=== PATIENT | male | born 1990 | race Hispanic/Latino ===

== ENCOUNTER 2019-12-02 14:01 | Emergency (ER) | payer SELFPAY ==
[~2019-12-02] VITALS: Ht 185.4 cm; Wt 108.9 kg
[2019-12-02] MEDS ORDERED: KETOROLAC TROMETHAMINE 30 MG/ML VIAL IV STA (15:31)
[2019-12-02] MEDS ORDERED: SODIUM CHLORIDE 0.9% 1000ML 1,000 ML IV SCH (15:45)
[2019-12-02] MEDS ORDERED: KETOROLAC TROMETHAMINE 30 MG/ML VIAL ONE (16:10)
[2019-12-02] MEDS ORDERED: SODIUM CHLORIDE 0.9% 1000ML 1,000 ML ONE (16:10)
--- NOTE | 2019-12-02 16:25 | Diagnostic Imaging Report ---
EXAM: CT Abdomen and Pelvis WITHOUT intravenous contrast INDICATION: Left flank pain COMPARISON: None. TECHNIQUE: Abdomen and pelvis were scanned utilizing a multidetector helical scanner from the lung base to the pubic symphysis without administration of IV contrast. Coronal and sagittal reformations were obtained. IV CONTRAST: None ORAL CONTRAST: None COMPLICATIONS: None RADIATION DOSE: Total DLP: 795 mGy*cm Dose modulation, iterative reconstruction, and/or weight based adjustment of the mA/kV was utilized to reduce the radiation dose to as low as reasonably achievable. FINDINGS: LOWER THORAX: Normal. HEPATOBILIARY: Severe diffuse hepatic steatosis. No definite focal liver lesion. Unremarkable gallbladder. SPLEEN: Splenomegaly to 14.9 cm. PANCREAS: No focal masses or ductal dilatation. ADRENALS: No adrenal nodules. KIDNEYS/URETERS: 2 mm calculus at the left ureterovesical junction likely represents a stone in transit. No hydronephrosis, hydroureter, or solid mass lesions. PELVIC ORGANS/BLADDER: Unremarkable PERITONEUM / RETROPERITONEUM: No free air or fluid. LYMPH NODES: No lymphadenopathy. VESSELS: Unremarkable. GI TRACT: No abnormal bowel thickening. No bowel obstruction. Normal appendix. BONES AND SOFT TISSUES: No acute osseous injury. No suspicious lytic or blastic lesion. IMPRESSION: 2 mm calcific density at the left ureterovesical junction likely represents a stone in transit. No hydronephrosis or hydroureter. Severe diffuse hepatic steatosis. Splenomegaly. Signed by: Roxanna Ferrell MD on 12/02/2019 4:21 PM
--- NOTE | 2019-12-02 18:10 | Emergency Department Note ---
History of Present Illnes History of Present Illness Chief Complaint: flank pain History of Present Illness This is a 29 year old male, with previous history of opioid abuse who has been c lean for 2 years, presents with left flank pain started today at noon she was at work. Patient states that he had a similar pain about approximately one month ago that was in the left low back area, was sharp, stabbing, and last for approximately 30 minutes and then resolved. He did not seek medical attention for that episode. Patient was in his usual state of good health until today at noon, when the pain recurred. The pain is described as sharp, stabbing, and in the left low back area. The pain radiates around to the left lower abdomen and groin. He denies any testicular pain or swelling. He also developed a headache since arriving here in the ED. Patient saw taken anything for the pain. He is also not seen any blood in his urine. He denies any previous history of kidney stones. Due to his recovery from opioid addiction, he requests no narcotic pain medication. 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 Onset (how long ago): hour(s) (3) Location: left flank and lower abdomen Quality: sharp, stabbing, Radiation: Reports abdomen (left side of the abdomen, and left lower quadrant) Severity: moderate Onset quality: sudden Duration (how long): hour(s) (3) Timing of current episode: constant Progression: worsening Chronicity: recurrent Context: Denies recent illness, Denies recent surgery, Denies trauma/injury Relieving factors: none Exacerbating factors: none Associated symptoms: Reports denies other symptoms; Denies chest pain, Denies cough, Denies fever/chills, Denies headaches, Denies nausea/vomiting, Denies shortness of breath Treatments prior to arrival: none Past Medical/Family History Physician Review I have reviewed the patient's past medical and family history. Any updates have been documented here. Past Medical History Recent Fever: No Clinical Suspicion of Infectio: No New/Unexplained Change in Ment: No Past Medical History: None Other Medical History: Opioid addiction - clean x 2 years, on Nalaxone; Past Surgical History: None Social History Smoking Cessation: Current every day smoker (Vapes) Counseling Performed: Yes Alcohol Use: None Any Illegal Drug Use: No TB Exposure/Symptoms: No Physically hurt or threatened: No Family History Family history of heart diseas: No Other Any Pre-Existing Lines (PICC,: No Is patient up to date on immun: No Review of Systems Review of Systems Constitutional: Reports no symptoms; Denies chills, Denies fever, Denies malaise EENTM: Reports no symptoms; Denies blurred vision (MORNING the left alcohol or) Cardiovascular: Denies chest pain, Denies palpitations Gastrointestinal: Reports abdominal pain; Denies diarrhea Genitourinary: Reports no symptoms Musculoskeletal: Reports no symptoms; Denies muscle pain Integumentary: Reports no symptoms Neurological: Reports headache; Denies numbness, Denies tingling, Denies weakness Psychological: Reports no symptoms Review of other systems: All other systems negative Physical Exam Related Data Triage Vital Signs Vital Signs Date Time Temp Pulse Resp B/P (MAP) Pulse Ox O2 Delivery O2 Flow Rate FiO2 12/02/19 14:45 98.0 59 20 140/89 100 Vital signs reviewed: Yes Physical Exam CONSTITUTIONAL Constitutional: Present well-developed, Present well-nourished; Absent ill appearing (appears uncomfortable;) HENT HENT: Present normocephalic, Present atraumatic, Present oropharynx clear/moist, Present nose normal HENT L/R: Present left ext ear normal, Present right ext ear normal EYES Eyes: Reports PERRL, Reports conjunctivae normal NECK Neck: Present ROM normal; Absent cervical adenopathy PULMONARY Pulmonary: Present effort normal, Present breath sounds normal CARDIOVASCULAR Cardiovascular: Present regular rhythm, Present heart sounds normal, Present capillary refill normal, Present normal rate; Absent murmur GASTROINTESTINAL Abdominal: Present soft, Present nontender, Present bowel sounds normal; Absent tender, Absent guarding, Absent rebound, Absent left CVA tenderness, Absent right CVA tenderness GENITOURINARY Genitourinary: Present exam deferred SKIN Skin: Present warm; Absent rash MUSCULOSKELETAL Musculoskeletal: Present ROM normal; Absent tenderness, Absent swelling NEUROLOGICAL Neurological: Present alert, Present oriented x 3 PSYCHOLOGICAL Psychological: Present mood/affect normal Results Laboratory Laboratory CBC - nl except for WBC = 10.1; CMP nl except for: gluc = 126, ALT = 163, AST - 83; UA - vili- small, blo -lagrge, Prot - 100 mg/dl; Lab results reviewed: Yes Imaging Imaging results reviewed: Yes Impressions [facility] [address] [address] Patient Name: LAMIN SANTA MR #: [id number] : 1990 Age/Sex: 29/M Req #: [id number] Adm Physician: Ordered by: DARRION RAHMAN MD Report #: [id number] Location: [facility] Room/Bed: Procedure: HOPD/CT ABD/PEL WO CONTRAST-HOPD Exam Date: 12/02/19 Exam Time: 1611 REPORT STATUS: Signed EXAM: CT Abdomen and Pelvis WITHOUT intravenous contrast INDICATION: Left flank pain COMPARISON: None. TECHNIQUE: Abdomen and pelvis were scanned utilizing a multidetector helical scanner from the lung base to the pubic symphysis without administration of IV contrast. Coronal and sagittal reformations were obtained. IV CONTRAST: None ORAL CONTRAST: None COMPLICATIONS: None RADIATION DOSE: Total DLP: 795 mGy*cm Dose modulation, iterative reconstruction, and/or weight based adjustment of the mA/kV was utilized to reduce the radiation dose to as low as reasonably achievable. FINDINGS: LOWER THORAX: Normal. HEPATOBILIARY: Severe diffuse hepatic steatosis. No definite focal liver lesion. Unremarkable gallbladder. SPLEEN: Splenomegaly to 14.9 cm. PANCREAS: No focal masses or ductal dilatation. ADRENALS: No adrenal nodules. KIDNEYS/URETERS: 2 mm calculus at the left ureterovesical junction likely represents a stone in transit. No hydronephrosis, hydroureter, or solid mass lesions. PELVIC ORGANS/BLADDER: Unremarkable PERITONEUM / RETROPERITONEUM: No free air or fluid. LYMPH NODES: No lymphadenopathy. VESSELS: Unremarkable. GI TRACT: No abnormal bowel thickening. No bowel obstruction. Normal appendix. BONES AND SOFT TISSUES: No acute osseous injury. No suspicious lytic or blastic lesion. IMPRESSION: 2 mm calcific density at the left ureterovesical junction likely represents a stone in transit. No hydronephrosis or hydroureter. Severe diffuse hepatic steatosis. Splenomegaly. Signed by: Sofie Ferrell MD on 12/02/2019 4:21 PM Dictated By: SOFIE FERRELL MD 1621 Transcribed By: MADI on 12/02/19 162 COPY TO: DARRION RAHMAN MD~ Diagnostics Tests Diagnostic test(s) reviewed: Yes Assessment & Plan Medical Decision Making MDM - Patient's pain resolved with the Toradol. Reviewed results of CT scan and labs with patient. Explained that he has a 2 mm stone at the left UVJ junction, that is nonobstructing, and that should, hopefully, has without incident. - Take medications as directed for pain or nausea. - Straining her urine, with each urination, and collect stone to take with you for follow-up with urology. - Recommend that you drink at least 1 gallon of water per day for the next several days until the stone is passed. - Follow-up with your urologist, upon return home, due to year history of kidney stone. Follow-up with urologist here in [place], if your symptoms worsen. - Follow-up with your primary care physician upon return home to [place], egarding the elevated liver enzymes discovered on your lab work today in the ED. - Return to the emergency room if your symptoms worsen, your pain is uncontrolled, or you are vomiting and unable to keep fluids down. Assessment & Plan Final Impression: (1) Left nephrolithiasis (2) Abdominal pain (3) Elevated liver enzymes Depart Disposition: HOME, SELF-CARE Last Vital Signs Date Time Temp Pulse Resp B/P (MAP) Pulse Ox O2 Delivery O2 Flow Rate FiO2 12/02/19 14:45 98.0 59 20 140/89 100 Medications in the ED Ketorolac Tromethamine 30 mg ONCE STAT IV Last administered on 12/02/19at 16:00; Admin Dose 30 MG; Start 12/02/19 at 15:31; Stop 12/02/19 at 15:42; Status DC Sodium Chloride 1,000 ml @ 0 mls/hr Q0M IV Last administered on 12/02/19at 16:00; Admin Dose 999 MLS/HR; Start 7/7/20 at 15:45; Stop 01/01/20 at 15:44 Ketorolac Tromethamine 30 mg STK-MED ONCE .ROUTE ; Start 12/02/19 at 16:10; Stop 12/02/19 at 16:06; Status DC Sodium Chloride 1,000 ml @ ud STK-MED ONCE .ROUTE ; Start 12/02/19 at 16:10; Stop 12/02/19 at 16:06; Status DC D/C medications: - Ketorolac 10 mg 1 by mouth 4 times a day when necessary pain #20 with no refills - Flomax 0.4 mg 1 by mouth daily, until stone is passed. #30 with no refills - Tramadol 50 mg 1-2 by mouth every 6 hours when necessary pain. #20 with no refills - Ondansetron ODT 4 mg 1 by mouth every 6 hours when necessary nausea and vomiting #20 with no refills. DARRION RAHMAN MD Dec 02, 2019 18:10
[2019-12-02 18:30] VITALS: BP 121/63
== END 2019-12-02 18:40 | disposition home or self-care (01) ==
LOC: FSED 14:01
DX: N20.0 Calculus of kidney (principal); R10.32 Left lower quadrant pain; M54.5 Low back pain; R74.8 Abnormal levels of other serum enzymes; F17.290 Nicotine dependence, other tobacco product, uncomplicated
CPT/HCPCS: 74176; 96374; 99284; J1885; J7030